=== PATIENT | male | born 1950 | race Two or more races ===

== ENCOUNTER → 2024-12-08 | Outpatient (CLI) | payer MEDICARE, MEDICAID, SELFPAY ==
[2024-12-08 13:21] LABS: Free T4 (Free Thyroxine) 0.93 ng/dL (0.89-1.76); Thyroid Stimulating Hormone 2.78 uIU/mL (0.55-4.78)
== END | disposition home or self-care (01) ==
PROVIDERS: PCP Family Medicine; Referring Provider Family Medicine; Visit Provider Family Medicine
DX: E03.9 Hypothyroidism, unspecified (principal)
CPT/HCPCS: 36415; 84439; 84443

== ENCOUNTER 2025-04-03 07:24 | Emergency (ER) | payer MEDICARE, MEDICAID, SELFPAY ==
[2025-04-03 07:25] VITALS: BMI 35.0
[2025-04-03 07:36] VITALS: BP 168/81; PULSE 61; RESP 19; TEMP 36.8; O2SAT 97
--- NOTE | 2025-04-03 07:55 | XR_ITS ---
Examination: CT brain head without contrast. 2-D sagittal coronal reconstructions Date and time of exam:April 03, 2025, 0834 hours Comparison August 26, 2019 INDICATIONS: Onset headaches beginning 3 days ago CTDI: vol (mGy):53.1 DLP: (mGycm):1055 Technique: Multiple CT axial sections of the brain have been obtained, 5 mm slice thickness. Contrast has not been administered. 2-D sagittal, coronal reconstructions have been obtained Low dose protocols were performed. One or more of the following dose reduction techniques were used; automated exposure control, adjustment of the mA and/or KV according to patient size, use of iterative reconstruction technique. Findings: No significant ventricular enlargement. Left temporal lobe tip subarachnoid cyst Intra-axial or extra-axial hemorrhage density is not seen. No mass effect or midline shift Basal cisterns are not remarkable. Fourth ventricle is midline. Cranial vault intact. Impression: Negative for acute hemorrhage, mass effect or midline shift Significant chronic sphenoid ethmoid sinusitis Advise clinical correlation follow-up accordingly
--- NOTE | 2025-04-03 07:56 | PD.EDRME ---
Rapid Medical Screening Exam RME Arrival date/time: 04/03/25 07:24 75-year-old male presents to the emergency department a day for complaints of headache ongoing for the last 2 to 3 days Chief Complaint: Headache Vital signs: Vital Signs Temperature 98.2 F 04/03/25 07:36 Pulse Rate 61 04/03/25 07:36 Respiratory Rate 19 04/03/25 07:36 Blood Pressure 168/81 H 04/03/25 07:36 Pulse Oximetry (%) 97 04/03/25 07:36 Oxygen Delivery Method Room Air 04/03/25 07:36
--- NOTE | 2025-04-03 08:15 | PD.EDHA ---
ED Headache RME/HPI General Chief Complaint: Headache Stated Complaint: HEADACHE; THINKS HE HAS BROKEN EARDRUM KAMLESH Time Seen by Provider: 04/03/25 08:04 Arrival date/time: 04/03/25 07:24 RME / HPI RME / HPI Narrative: 04/03/25 07:24 75-year-old male presents to the emergency department a day for complaints of headache ongoing for the last 2 to 3 days MD MARIBELL EVALUATION NOTE This is a 75-year-old male who presents the emergency department for evaluation of headache that has been ongoing for the past 3 to 4 days. Notes that the pain is bandlike around his head, worse to temples. Intensity does fluctuate throughout the day. Denies any nausea, vomiting, vision changes. Some trouble with walking the past few days with the headache as he feels like the headache is worse whenever he leans down. Last time he had a headache was about 8 days ago and states that he will get headaches every now and then recently. These usually self resolve. No other acute symptoms at this time. Related Data Previous Rx's ?Medication ?Instructions ?Recorded cyclobenzaprine 10 mg tablet 10 mg PO TID #30 tabs 04/09/19 naproxen 500 mg tablet 500 mg PO BID #30 tabs 04/09/19 prochlorperazine maleate 5 mg 5 mg PO TID PRN headache and 04/03/25 tablet (Compazine) nausea #14 tabs Allergies Allergy/AdvReac Type Severity Reaction Status Date / Time Iodinated Contrast Media Allergy Mild Hives Verified 04/03/25 07:30 Review of Systems Review of Systems Systems Reviewed: All systems reviewed, normal except as documented Past Medical History Past Medical History CARDIAC: Positive Hypertension ENT: Positive Cataracts Surgical History OTHER SURGICAL HX: Bilateral total knee replacement, appendectomy ED Exam Narrative Physical exam: Constitutional: Awake, alert, nontoxic, no acute distress HEENT: NC, AT, EOMI, PERRL Neck: Supple CV: RRR, no m/r/g Lungs: CTAB, no w/r/r, no respiratory distress. Extremities: No deformities, able to move all 4 extremities equally. Neuro: AAOx3, CN 2-12 GIBL, no acute neuro deficit noted. Stable gait. Skin: Warm, dry, intact Course Course Course Narrative: 1045h: The patient feels improved. The head CT is negative for acute findings. Patient has remained stable through ED course and will discharge home. Quality Measures none Orders Category Date Time Status CT head/brain wo con Stat Exams 04/03/25 07:55 Completed CBC Stat Lab 04/03/25 08:20 Completed CMP [Comprehensive Metabolic Panel] Stat Lab 04/03/25 08:20 Completed Acetaminophen Ivpb [Ofirmev Inj] Med 04/03/25 08:13 Discontinued 1,000 mg in 100 ml IV NOW DiphenhydrAMINE INJ [Benadryl Inj] Med 04/03/25 08:12 Discontinued 25 mg IVP X1 ONE Ketorolac Inj [Toradol Inj] Med 04/03/25 08:12 Discontinued 15 mg IVP X1 ONE Metoclopramide Inj [Reglan Inj] Med 04/03/25 08:12 Discontinued 10 mg IVP X1 ONE Vital Signs Vital signs: Vital Signs Temperature 98.2 F 04/03/25 07:36 Pulse Rate 61 04/03/25 07:36 Respiratory Rate 19 04/03/25 07:36 Blood Pressure 168/81 H 04/03/25 07:36 Pulse Oximetry (%) 97 04/03/25 07:36 Oxygen Delivery Method Room Air 04/03/25 07:36 Pulse ox is 97% on room air which is adequate. Headache Patient data External records reviewed:: [facility] previous records Clinical information provided by:: patient and family Social determinants that could affect healthcare access:: none Patient has the following chronic illnesses:: Hypertension How is presenting disease/condition affected by chronic disease/condition?: uneffected by Evaluation data The following diagnostics were reviewed and interpreted by me:: lab results and radiology exam(s) Lab and/or radiology exams considered but not ordered:: None Interpretation Summary: Ordering Physician: Romi MOYA)Tito NP Date of Service: 04/03/25 Procedure(s): CT head/brain wo con Accession Number(s): [id number] cc: Tito Llanos NP, NP; Corby Navas MD; Kai Shea MD~ Examination: CT brain head without contrast. 2-D sagittal coronal reconstructions Date and time of exam:April 03, 2025, 0834 hours Comparison August 26, 2019 INDICATIONS: Onset headaches beginning 3 days ago CTDI: vol (mGy):53.1 DLP: (mGycm):1055 Technique: Multiple CT axial sections of the brain have been obtained, 5 mm slice thickness. Contrast has not been administered. 2-D sagittal, coronal reconstructions have been obtained Low dose protocols were performed. One or more of the following dose reduction techniques were used; automated exposure control, adjustment of the mA and/or KV according to patient size, use of iterative reconstruction technique. Findings: No significant ventricular enlargement. Left temporal lobe tip subarachnoid cyst Intra-axial or extra-axial hemorrhage density is not seen. No mass effect or midline shift Basal cisterns are not remarkable. Fourth ventricle is midline. Cranial vault intact. Impression: Negative for acute hemorrhage, mass effect or midline shift Significant chronic sphenoid ethmoid sinusitis Advise clinical correlation follow-up accordingly Dictated By: Corby Navas MD Signed By: <Electronically signed by Corby Navas MD in OV> 04/03/25 0908 Medications / Prescriptions Medications or Prescriptions considered but not ordered:: None Medication administrations:: Medication Administration History Discontinued Medications Diphenhydramine HCl (Diphenhydramine Inj 50 Mg/Ml Vial) 25 mg IVP X1 ONE Stop: 04/03/25 08:13 Last Admin: 04/03/25 09:57 Dose: 25 mg Documented By: IQRA Acetaminophen (Ofirmev Inj) 1,000 mg in 100 mls @ 250 mls/hr IV NOW ONE Stop: 04/03/25 08:36 Last Admin: 04/03/25 09:57 Dose: 250 mls/hr Documented By: IQRA Ketorolac Tromethamine (Ketorolac Inj 30 Mg/Ml Vial) 15 mg IVP X1 ONE Stop: 04/03/25 08:13 Last Admin: 04/03/25 09:57 Dose: 15 mg Documented By: IQRA Metoclopramide HCl (Metoclopramide Inj 5 Mg/Ml Vial 2 Ml) 10 mg IVP X1 ONE; Protocol Stop: 04/03/25 08:13 Last Admin: 04/03/25 09:56 Dose: 10 mg Documented By: IQRA See above Consultations Consultation(s) initiated? (list below): No Diagnosis Differential diagnosis headache: migraine, tension headache and other Most likely diagnosis given after review of the tests above:: Headache Admission Indicated Admission indicated?: not indicated Admission Request Was there a request for admission?: No Disposition Plan Disposition Plan: Discharge Discharge Attestation Discharge Attestation: The patient and all family members were given an opportunity to ask questions and understood the discharge instructions. Discharge instructions specifically effects, indications for sooner follow up or return to the emergency department, and the expected course of current diagnosis. Patient condition: Stable Discharge Plan Plan Patient Disposition: HOME (Self Care) Patient condition on transfer: Stable Prescriptions/Referrals Prescriptions/Med Rec: New prochlorperazine maleate [Compazine] 5 mg tablet 5 mg PO TID PRN (Reason: headache and nausea) Qty: 14 0RF No Action naproxen 500 mg tablet 500 mg PO BID Qty: 30 0RF cyclobenzaprine 10 mg tablet 10 mg PO TID Qty: 30 0RF Referrals: Kai Shea MD [Primary Care Provider] - In 1 week Problem List Clinical Impression: Headache Patient/Caregiver Discharge Instructions Education Materials: Self-Care for Headaches Additional Instructions: May take tylenol 1g every 6 hours as needed for headache. May also take compazine as needed for headache with nausea. CT scan of head is negative for acute abnormalities. Does show some changes consistent with chronic sphenoid ethmoid sinusitis - may consider outpatient follow up with ENT for further evaluation of this. Print Language: Syriac Stand Alone Forms: [employer] Award Info., Patient Portal Info Letter
[2025-04-03 08:22] VITALS: BP 167/83; PULSE 56; RESP 19; TEMP -12.6; TEMP 9.4; O2SAT 99
[2025-04-03 09:01] LABS: Basophils # (Auto) 0.0 Thou/mm3 (0.0-0.2); Basophils % (Auto) 0 % (0-2.5); Eosinophils # (Auto) 0.2 Thou/mm3 (0.0-0.5); Eosinophils % (Auto) 2 % (0-10); Hematocrit 39.3 % (41.0-53.0); Hemoglobin 13.7 g/dL (13.5-16.0); Immature Granulocytes Auto 0.01 Thou/mm3 (0.00-0.00); Lymphocytes # (Auto) 1.0 Thou/mm3 (1.0-4.8); Lymphocytes % (Auto) 15 % (10-50); Mean Corpuscular HGB Conc 34.9 g/dl (31.0-37.0); Mean Corpuscular Hemoglobin 30.8 pg (25.0-35.0); Mean Corpuscular Volume 88 fL (80-100); Monocytes # (Auto) 0.7 Thou/mm3 (0.0-0.8); Monocytes % (Auto) 10 % (0-12); Neutrophils # (Auto) 5.0 Thou/mm3 (1.8-7.7); Neutrophils % (Auto) 72 % (37-80); Nucleated Red Blood Cell # 0.00 Thou/mm3 (0.00-0.00); Nucleated Red Blood Cell % 0 /100 WBC (0); Platelet Count 180 Thou/mm3 (140-440); RDW Standard Deviation 43.8 fL (35.1-43.9); Red Blood Count 4.45 Miln/mm3 (4.50-5.90); White Blood Count 7.0 Thou/mm3 (3.8-10.6)
[2025-04-03 09:10] LABS: Alanine Aminotransferase 23 U/L (10-49); Albumin, Serum 4.7 gm/dL (3.4-4.8); Albumin/Globulin Ratio 2.1 (1.2-2.2); Alkaline Phosphatase 78 U/L (46-116); Anion Gap 8 (7-16); Aspartate Amino Transferase 30 U/L (0-34); BUN/Creatinine Ratio 20 Ratio (12-20); Bilirubin,Total 0.6 mg/dL (0.3-1.2); Blood Urea Nitrogen 20 mg/dL (9-23); Calcium 9.7 mg/dL (8.3-10.6); Calcium (Corrected) 9.7 mg/dL (8.5-10.1); Carbon Dioxide 26.1 mMol/L (20.0-31.0); Chloride 105 mMol/L (98-107); Creatinine (Component) 1.0 mg/dL (0.6-1.3); Estimated Creatinine Clearance 63.5 mL/min (>60); Globulin 2.2 gm/dL (2.3-3.5); Glucose 100 mg/dL (74-106); Osmolality,Calculated 280 (275-295); Potassium 4.1 mMol/L (3.4-5.1); Sodium 139 mMol/L (136-145); Total Protein 6.9 gm/dL (5.7-8.2); eGFR > 60 See Note
[2025-04-03] MEDS: METOCLOPRAMIDE INJ 5 MG/ML VIAL 2 ML 10 MG IVP (09:56)
[2025-04-03] MEDS: ACETAMINOPHEN IVPB 1,000 MG/100 ML VIAL 250 MG IV (09:57)
[2025-04-03] MEDS: KETOROLAC INJ 30 MG/ML VIAL 15 MG IVP (09:57)
[2025-04-03 11:38] VITALS: BP 133/72; PULSE 57; RESP 17; TEMP 36.8; O2SAT 98
== END 2025-04-03 11:39 | disposition home or self-care (01) ==
PROVIDERS: Nurse Practitioner Primary Care; Emergency Provider Family Medicine; PCP Family Medicine
DX: R51.9 Headache, unspecified (principal)
CPT/HCPCS: 36415; 70450; 80053; 85025; 96365; 96366; 96375; 99283; J0131; J1200; J1885; J2765

== ENCOUNTER 2025-06-02 10:53 | Emergency (ER) | payer MEDICARE, MEDICAID, SELFPAY ==
[2025-06-02] VITALS (15 sets, daily range): BP systolic 100–172; BP diastolic 72–86; PULSE 45–59; RESP 16–18; TEMP 36.4–36.7; O2SAT 97–100; BMI 31.3
--- NOTE | 2025-06-02 | XR_ITS ---
Examination: MRI left lower leg without contrast Date and time of exam: June 02, 2025, 1314 hours INDICATIONS: Patient anticoagulated with onset left calf pain today Technique: Multiple MRI axial and sagittal sections lumbar spine. Sagittal T2-weighted images, TR 3500, TE 118 T1 weighted transverse sections, TR 688 T8.5, T2-weighted sagittal sections T1 weighted sagittal sections TR 621, TE 30 T2 axial sections, TR 4, 190, TE 84. Findings: 8.7 x 2.8 x 5.2 cm hematoma in the medial head of the gastrocnemius No tendon rupture Tibia-fibula appear intact no cortical bone destruction or endosteal scalloping Achilles tendon intact IMPRESSION: Large hematoma in the medial head of the gastrocnemius
--- NOTE | 2025-06-02 11:21 | EKG_ITS ---
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
--- NOTE | 2025-06-02 11:21 | XR_ITS ---
Examination: Duplex scan of the lower extremity, unilateral left complete Date and time of exam: June 02, 2025, 11:15 a.m. INDICATIONS: Patient fell 1 week ago with left leg and calf pain Technique: Duplex scan of the extremity veins using B-mode/grayscale imaging and Doppler spectral analysis and color flow Attention is directed to internal echogenicity, compression and augmentation involving these veins, color flow assessment, spectral analysis Findings: Major deep venous structures in the extremity demonstrate normal course and caliber. There is no evidence of deep vein thrombosis. Normal color flow and spectral analysis Impression: Negative for DVT.. Solid mass in the calf at the area of concern which may represent a hematoma, 9.9 x 2.2 x 7.2 cm Consider MRI lower leg without contrast follow-up
--- NOTE | 2025-06-02 11:21 | XR_ITS ---
Examination: CTA chest with intravenous contrast 2-D reconstructions 3-D reconstructions, vascular Date and time of exam: June 02, 2025, 1341 hours, comparison June 23, 2024 INDICATIONS: Shortness of breath chest pain today CTDI: vol (mGy) 12.8 DLP: (mGycm) 463 Technique: Multiple axial sections of the thorax have been obtained. 3 mm slice thickness, from below the hemidiaphragms to above the apices of the lungs. Mediastinal and lung density settings have been obtained. 2-D sagittal and coronal reconstructions. 3-D angiographic renderings, 3-D volume renderings, 3D post processing, vascular maximum intensity projections obtained. Contrast administered is 100 cc Isovue-370. Low dose protocols were performed. One or more of the following dose reduction techniques were used; automated exposure control, adjustment of the mA and/or KV according to patient size, use of iterative reconstruction technique. Findings: Mild aneurysmal dilatation ascending thoracic aorta, 4.2 cm Pulmonary artery segments are not enlarged. No pulmonary artery emboli. No paratracheal tracheobronchial or bronchopulmonary adenopathy. Mild vascular congestion. Bronchiectasis versus cavitary parenchymal disease in the right middle lobe No visualized liver or splenic lesion Gallstones No pancreatic mass Moderate osteopenia with moderate diffuse degenerative change thoracic spine IMPRESSION: Mild aneurysmal dilatation ascending thoracic aorta, no thoracic aortic dissection. Negative for pulmonary artery emboli. Cavitary parenchymal disease versus bronchiectasis in the right middle lobe, recommend follow-up chest imaging Cholelithiasis
--- NOTE | 2025-06-02 11:21 | PD.EDEXREM ---
ED Extremity Problem RME/HPI General Chief complaint: Extremity Problem,Nontraumatic Stated complaint: Left calf swelling X 1 week Time Seen by Provider: 06/02/25 11:10 Arrival date/time: 06/02/25 10:53 Limitations: no limitations RME / HPI RME / HPI Narrative: 75-year-old male here for swelling to left calf. He states for over 1 week. Reports was climbing a ladder more than a week ago and right leg slipped however stayed with the left leg and calf anchored onto the ladder. Of concern patient has had bilateral total knee replacement. And on long-term Xarelto 10 mg daily. States he is having shortness of breath but that is kind of part of his daily living. Family is worried about a DVT or a PE. Related Data Previous Rx's ?Medication ?Instructions ?Recorded cyclobenzaprine 10 mg tablet 10 mg PO TID #30 tabs 04/09/19 naproxen 500 mg tablet 500 mg PO BID #30 tabs 04/09/19 prochlorperazine maleate 5 mg 5 mg PO TID PRN headache and 04/03/25 tablet (Compazine) nausea #14 tabs Allergies Allergy/AdvReac Type Severity Reaction Status Date / Time Iodinated Contrast Media Allergy Mild Hives Verified 06/02/25 10:57 Review of Systems Review of Systems Systems Reviewed: All systems reviewed, normal except as documented Constitutional Constitutional: Denies fever(s) Musculoskeletal Musculoskeletal: Reports as per HPI Integumentary/Breasts Skin/Breast: Reports as per HPI ED Exam General Limitations: Present no limitations General appearance: Present alert and in no apparent distress Head Head exam: Present atraumatic Eye Eye exam: Present normal appearance, PERRL and EOMI ENT ENT exam: Present normal exam, normal oropharynx and mucous membranes moist Neck Neck exam: Present normal inspection, full ROM and trachea midline Chest Chest inspection: Present normal inspection and symmetric chest wall rise Respiratory Respiratory exam: Present normal lung sounds bilaterally Cardiovascular Cardiovascular exam: Present regular rate, normal rhythm and normal heart sounds Abdominal Exam Abdominal exam: Present soft and normal bowel sounds Extremities Exam Extremities exam: Present other (Bilateral knee scars left posterior calf with firmness and TTP) Back Exam Back exam: Present normal inspection and full ROM Psychiatric Psychiatric exam: Present normal affect and normal mood Skin Skin exam: Present warm, dry, intact and normal color Course Quality Measures none Orders Category Date Time Status CT Screening NOW Care 06/02/25 11:23 Completed EKG (ED ONLY) *Do not use* NOW Care 06/02/25 11:22 Completed Insert IV NOW Care 06/02/25 11:21 Completed MRI Screening NOW Care 06/02/25 14:02 Completed MRI Screening NOW Care 06/02/25 14:[address] angio chest Stat Exams 06/02/25 11:21 Completed EKG (ED Only) Stat Exams 06/02/25 11:21 Draft MR lower leg LT wo con Stat Exams 06/02/25 Completed US venous doppler LE LT Stat Exams 06/02/25 11:21 Completed BNP [B-Type Natriuretic Peptide] Stat Lab 06/02/25 11:48 Completed CBC [CBC] Stat Lab 06/02/25 11:48 Completed CMP [Comprehensive Metabolic Panel] Stat Lab 06/02/25 11:48 Completed Troponin I Stat Lab 06/02/25 11:48 Completed DiphenhydrAMINE INJ [Benadryl Inj] Med 06/02/25 11:21 Discontinued 50 mg IVP X1 ONE HYDROcodone*/APAP 5/325 [Bob White 5/325] Med 06/02/25 11:21 Discontinued 1 tab PO X1 ONE Lisinopril [Prinivil] Med 06/02/25 11:35 Discontinued 40 mg PO X1 ONE Vital Signs Vital signs: Vital Signs Temperature 97.6 F 06/02/25 11:01 Pulse Rate 59 L 06/02/25 11:01 Respiratory Rate 18 06/02/25 11:01 Blood Pressure 172/86 H 06/02/25 11:01 Pulse Oximetry (%) 98 06/02/25 11:01 Oxygen Delivery Method Room Air 06/02/25 11:01 PROCEDURES: EKG Interpretation #1: Date of EK06/02/25 Time of EK:23 Rate: 54 Interpretation: Interpreted by me EKG Impression: No acute ST-T changes Additional EKG comment: no acute ischemia Extremity Problem Patient data External records reviewed:: [facility] previous records Clinical information provided by:: patient and family Social determinants that could affect healthcare access:: other (specify) (Elderly male relies on his daughters for healthcare) Patient has the following chronic illnesses:: Bilateral knee replacement, hypertension, chronic blood thinner How is presenting disease/condition affected by chronic disease/condition?: exacerbated by Evaluation data The following diagnostics were reviewed and interpreted by me:: lab results and radiology exam(s) Lab and/or radiology exams considered but not ordered:: All imaging considered was ordered Interpretation Summary: CBC CMP troponin BNP EKG all within normal limits CT angio chest no PE DVT study of left calf showed only hematoma MRI of left calf ordered due to recommendation based on imaging showed also a large hematoma. Medications / Prescriptions Medications or Prescriptions considered but not ordered:: Narcotics for home were considered however given age opted against Medication administrations:: Medication Administration History Discontinued Medications Hydrocodone Bitart/Acetaminophen (Hydrocodone/Apap 5/325 Tablet) 1 tab PO X1 ONE Stop: 06/02/25 11:22 Last Admin: 06/02/25 11:35 Dose: 1 tab Documented By: VIDYA Diphenhydramine HCl (Diphenhydramine Inj 50 Mg/Ml Vial) 50 mg IVP X1 ONE Stop: 06/02/25 11:22 Last Admin: 06/02/25 13:18 Dose: 50 mg Documented By: TYLER Lisinopril (Lisinopril 20 Mg Tablet) 40 mg PO X1 ONE Stop: 06/02/25 11:36 Last Admin: 06/02/25 12:55 Dose: 40 mg Documented By: ANAID See above Consultations Consultation(s) initiated? (list below): No Diagnosis Extremity Problem Differential Diagnosis: herpes zoster, gout, cellulitis, superficial thrombophlebitis, deep venous thrombosis of upper extremity, lower extremity edema and other (PE, contusion,) Most likely diagnosis given after review of the tests above:: Left calf hematoma Chronic blood thinner use Bilateral knee replacement Admission Indicated Admission indicated?: not indicated Admission Request Was there a request for admission?: No Disposition Plan Disposition Plan: Discharge Discharge Attestation Discharge Attestation: The patient and all family members were given an opportunity to ask questions and understood the discharge instructions. Discharge instructions specifically effects, indications for sooner follow up or return to the emergency department, and the expected course of current diagnosis. Patient condition: Stable Discharge Plan Plan Patient Disposition: HOME (Self Care) Discharge Disposition comment: Follow-up with PCP in 2 to 3 days Prescriptions/Referrals Prescriptions/Med Rec: No Action naproxen 500 mg tablet 500 mg PO BID Qty: 30 0RF cyclobenzaprine 10 mg tablet 10 mg PO TID Qty: 30 0RF prochlorperazine maleate [Compazine] 5 mg tablet 5 mg PO TID PRN (Reason: headache and nausea) Qty: 14 0RF Referrals: No Primary/Family,Physician [Primary Care Provider] - In 1 week Problem List Clinical Impression: Contusion of left lower leg, Hematoma, Hx of jail use of blood thinners, Chronic dyspnea Patient/Caregiver Discharge Instructions Education Materials: ED Contusion, Lower Extremity Print Language: Kenyan Stand Alone Forms: [employer] Award Info., Patient Portal Info Letter 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 Cuadra
[2025-06-02] MEDS: HYDROcodone/APAP 5/325 TABLET 1 TAB PO (11:35)
[2025-06-02 12:22] LABS: B-Type Natriuretic Peptide 52 pg/mL (0-100)
[2025-06-02 12:23] LABS: Alanine Aminotransferase 30 U/L (10-49); Albumin, Serum 4.7 gm/dL (3.4-4.8); Albumin/Globulin Ratio 1.7 (1.2-2.2); Alkaline Phosphatase 77 U/L (46-116); Anion Gap 9 (7-16); Aspartate Amino Transferase 39 U/L (0-34); BUN/Creatinine Ratio 17 Ratio (12-20); Bilirubin,Total 0.9 mg/dL (0.3-1.2); Blood Urea Nitrogen 17 mg/dL (9-23); Calcium 9.1 mg/dL (8.3-10.6); Calcium (Corrected) 9.1 mg/dL (8.5-10.1); Carbon Dioxide 26.2 mMol/L (20.0-31.0); Chloride 105 mMol/L (98-107); Creatinine (Component) 1.0 mg/dL (0.6-1.3); Estimated Creatinine Clearance 68.6 mL/min (>60); Globulin 2.7 gm/dL (2.3-3.5); Glucose 89 mg/dL (74-106); Osmolality,Calculated 279 (275-295); Potassium 3.8 mMol/L (3.4-5.1); Sodium 140 mMol/L (136-145); Total Protein 7.4 gm/dL (5.7-8.2); Troponin I < 0.020 ng/mL (0.0-0.045); eGFR > 60 See Note
[2025-06-02 13:26] LABS: Basophils # (Auto) 0.0 Thou/mm3 (0.0-0.2); Basophils % (Auto) 1 % (0-2.5); Eosinophils # (Auto) 0.2 Thou/mm3 (0.0-0.5); Eosinophils % (Auto) 4 % (0-10); Hematocrit 41.6 % (41.0-53.0); Hemoglobin 14.2 g/dL (13.5-16.0); Immature Granulocytes Auto 0.01 Thou/mm3 (0.00-0.00); Lymphocytes # (Auto) 1.1 Thou/mm3 (1.0-4.8); Lymphocytes % (Auto) 21 % (10-50); Mean Corpuscular HGB Conc 34.1 g/dl (31.0-37.0); Mean Corpuscular Hemoglobin 29.9 pg (25.0-35.0); Mean Corpuscular Volume 88 fL (80-100); Monocytes # (Auto) 0.5 Thou/mm3 (0.0-0.8); Monocytes % (Auto) 9 % (0-12); Neutrophils # (Auto) 3.4 Thou/mm3 (1.8-7.7); Neutrophils % (Auto) 66 % (37-80); Nucleated Red Blood Cell # 0.00 Thou/mm3 (0.00-0.00); Nucleated Red Blood Cell % 0 /100 WBC (0); Platelet Count 202 Thou/mm3 (140-440); RDW Standard Deviation 43.2 fL (35.1-43.9); Red Blood Count 4.75 Miln/mm3 (4.50-5.90); White Blood Count 5.2 Thou/mm3 (3.8-10.6)
--- NOTE | 2025-06-02 18:35 | PC.NURSE ---
PATIENT TO MRI
--- NOTE | 2025-06-02 20:57 | PC.NURSE ---
pt resting quietly at this time. Family at bedside. pt is hungry. pt given a sandwich.
== END 2025-06-02 21:31 | disposition home or self-care (01) ==
PROVIDERS: Physician Assistant
DX: S80.12XA Contusion of left lower leg, initial encounter (principal); W01.0XXA Fall on same level from slipping, tripping and stumbling without subsequent striking against object, initial encounter
CPT/HCPCS: 36415; 71275; 73718; 80053; 83880; 84484; 85025; 93005; 93971; 96374; 99283; A4649; J1200; Q9967; A9270

== ENCOUNTER → 2025-06-04 | Outpatient (CLI) | payer MEDICARE, MEDICAID, SELFPAY ==
[2025-06-04 14:56] LABS: INR 1.1 (0.9-1.3); Prothrombin Time 11.2 Seconds (9.0-12.2)
== END | disposition home or self-care (01) ==
LOC: COPL 12:55
PROVIDERS: PCP Family Medicine; Referring Provider Family Medicine; Visit Provider Family Medicine
DX: Z01.818 Encounter for other preprocedural examination (principal)
CPT/HCPCS: 36415; 85610